=== PATIENT | male | born 1975 | race Caucasian/White ===

== ENCOUNTER 2016-04-30 09:13 | Inpatient (IN) | payer OTHER ==
[~2016-04-30] VITALS: Ht 165.1 cm; Wt 114.0 kg
[~2016-04-30 09:13] MED LIST: ADVI200C9 PO; CIPR500T4 PO; LORT5TAB PO; TYLE3 PO; Z.0.NO CURRENT MEDS
[2016-04-30] MEDS ORDERED: MORPHINE SULFATE 8 MG/ML INJ ONE ×2 (09:17→09:31)
[2016-04-30] MEDS ORDERED: ONDANSETRON HCL 4 MG/2 ML VIAL ONE (09:18)
[2016-04-30] MEDS ORDERED: DIPHTH/TETANUS/ACEL PERTUSSIS (BOOSTER) 0.5 ML VIAL/PFS IM ONE ×2 (09:18→10:00)
[2016-04-30] MEDS ORDERED: ceFAZolin 2 GM PREMIX 50 ML ONE (09:18)
[2016-04-30 09:23] VITALS: O2SAT 97
[2016-04-30 09:31] LABS: I-STAT POTASSIUM 4.3 MMOL/L (3.5-4.9); I-STAT SODIUM 142 MMOL/L (138-146)
[2016-04-30 09:33] LABS: EOSINOPHIL % 1.5 % (0.0-4.0); HEMATOCRIT 49.2 % (39.0-51.0); HEMO FLAGS DIFF FINAL; LYMPH % 33.9 % (9.0-44.0); MEAN CELL VOLUME 86.2 FL (80.0-100.0); MEAN CORPUSCULAR HEMOGLOBIN 29.7 PG (27.0-34.0); MEAN CORPUSCULAR HGB CONC 34.4 % (32.0-36.0); MONO % 3.8 % (0.0-8.0); NEUT % 59.8 % (16.0-70.0); PLATELET COUNT 380 TH/MM3 (150-450); RED BLOOD COUNT 5.71 MIL/MM3 (4.50-5.90); RED CELL DISTRIBUTION WIDTH 13.5 % (11.6-17.2); WHITE BLOOD COUNT 14.1 TH/MM3 (4.0-11.0)
[2016-04-30 09:34] LABS: AUTOMATED NEUTROPHIL # 8.4 TH/MM3 (1.8-7.7); BASOPHIL # 0.1 TH/MM3 (0-0.2); EOSINOPHIL # 0.2 TH/MM3 (0-0.4); LYMPHOCYTE # 4.8 TH/MM3 (1.0-4.8)
[2016-04-30] MEDS ORDERED: IOHEXOL 350 MG/ML 10 ML VIAL (for RAD DIAG) IV ONE (09:42)
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
[2016-04-30 09:44] LABS: APTT (PATIENT) 22.6 SEC (24.3-30.1); INTERNATIONAL NORMALIZED RATIO 0.9 RATIO; PROTHROMBIN TIME - PATIENT 10.4 SEC (9.8-11.6)
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
[2016-04-30] MEDS ORDERED: HYDROmorphone HCL PF 1 MG/ML VIAL ONE (09:46)
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
[2016-04-30] MEDS ORDERED: MORPHINE SULFATE 4 MG/ML INJ IV ONE (10:00)
[2016-04-30] MEDS ORDERED: ONDANSETRON HCL 4 MG/2 ML VIAL IV PUSH ONE ×2 (10:00→12:00)
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
[2016-04-30] MEDS ORDERED: metroNIDAZOLE 500 MG INJ 100 ML IV ONE (10:05)
[2016-04-30] MEDS ORDERED: ceFAZolin 2 GM PREMIX 50 ML IV ONE (10:15)
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
[2016-04-30 11:10] LABS: BLOOD GAS BASE EXCESS -4.8 mmol/L (-2-2); BLOOD GAS CARBOXYHEMOGLOBIN 1.1 % (0-4); BLOOD GAS HCO3 21 mmol/L (22-26); BLOOD GAS METHEMOGLOBIN 1.2 % (0-2); BLOOD GAS O2 HGB SATURATION 97 % (90-100); BLOOD GAS OXYGEN CONTENT 18.6 Vol % (12.0-20.0); BLOOD GAS PCO2 48 mmHg (38-42); BLOOD GAS PO2 216 mmHg (61-120); BLOOD GAS TOTAL HGB 13.3 G/DL (12.0-16.0); CRITICAL VALUE YES; FIO2 100 %; OXYGEN DEVICE VENTILATOR; STAT YES; TEMP CORR TO 98.6; VENT SETTINGS OR SETTINGS
[2016-04-30] MEDS ORDERED: SUGAMMADEX SODIUM 200 MG/2 ML VIAL IV PUSH ONE ×2 (11:25)
[2016-04-30] MEDS ORDERED: ONDANSETRON HCL 4 MG/2 ML VIAL IV PRN (11:30)
[2016-04-30] MEDS ORDERED: ENALAPRILAT 1.25 MG/ML VIAL IV PRN (11:30)
[2016-04-30] MEDS ORDERED: ACETAMINOPHEN/HYDROcodone 325 MG/5 MG TAB PO PRN (11:30)
[2016-04-30] MEDS ORDERED: MAGNESIUM HYDROXIDE SUSP 30 ML CUP PO PRN (11:30)
[2016-04-30] MEDS ORDERED: SODIUM CHLORIDE 0.9% FLUSH 5 ML FLUSH IVF PRN (11:30)
[2016-04-30] MEDS ORDERED: PROPOFOL 200 MG/20 ML AMP IV ONE (12:00)
[2016-04-30] MEDS ORDERED: LACTATED RINGER'S 1000 ML INJ 3,000 ML IV ONE (12:00)
[2016-04-30] MEDS ORDERED: NORMOSOL R INJ 1,000 ML IV ONE (12:00)
[2016-04-30] MEDS ORDERED: NEOSTIGMINE 3 MG/3 ML SYR IV ONE (12:00)
[2016-04-30] MEDS ORDERED: SODIUM CHLOR 0.9% 1000 ML INJ 1,000 ML IV ONE (12:00)
[2016-04-30] MEDS: SODIUM CHLOR 0.9% 1000 ML INJ 1,000 ML IV SCH ×2 (13:00→23:00)
[2016-04-30] MEDS: PANTOPRAZOLE SODIUM 40 MG VIAL IVP SCH (13:00)
[2016-04-30] MEDS ORDERED: DO NOT ADM ANY ANTICOAGULANT DRUGS XX PRN (13:28)
[2016-04-30] MEDS ORDERED: fentaNYL CITRATE 250 MCG/5 ML AMP ONE (13:48)
[2016-04-30] MEDS ORDERED: MIDAZOLAM HCL 2 MG/2 ML VIAL ONE (13:48)
[2016-04-30] MEDS ORDERED: MORPHINE SULFATE 4 MG/ML INJ ONE (13:49)
[2016-04-30] MEDS: HYDROmorphone HCL PF 1 MG/ML VIAL IVP PRN ×2 (14:10→19:05)
[2016-04-30] MEDS ORDERED: *morphine SULFATE 8 MG/ML PERIprocedure ONLY ONE ×2 (15:07→15:49)
[2016-04-30 17:57] VITALS: BP 131/60; PULSE 121; RESP 20; TEMP 97.9; O2SAT 93
[2016-04-30] MEDS: ACETAMINOPHEN/HYDROcodone 325 MG/5 MG TAB PO PRN ×2 (18:10→23:09)
[2016-04-30 20:00] VITALS: BP 119/59; PULSE 114; RESP 20; TEMP 98.7; O2SAT 92
[2016-04-30] MEDS: DOCUSATE SODIUM 100 MG CAP PO SCH (23:07)
[2016-05-01] VITALS (7 sets, daily range): BP systolic 104–131; BP diastolic 62–70; PULSE 81–103; RESP 18–20; TEMP 97.4–99.8; O2SAT 90–98
[2016-05-01] MEDS: BACITRACIN TOP OINT 15 GM TUBE TOP SCH ×2 (01:04→09:00)
[2016-05-01] MEDS: HYDROmorphone HCL PF 1 MG/ML VIAL IVP PRN ×5 (04:21→21:25)
[2016-05-01] MEDS: DOCUSATE SODIUM 100 MG CAP PO SCH ×2 (09:00→21:13)
[2016-05-01 09:28] LABS: AUTOMATED NEUTROPHIL # 9.2 TH/MM3 (1.8-7.7); BASOPHIL # 0.1 TH/MM3 (0-0.2); BASOPHIL % 0.7 % (0.0-2.0); EOSINOPHIL # 0.1 TH/MM3 (0-0.4); EOSINOPHIL % 0.5 % (0.0-4.0); HEMATOCRIT 37.5 % (39.0-51.0); HEMO FLAGS DIFF FINAL; LYMPHOCYTE # 2.1 TH/MM3 (1.0-4.8); MEAN CELL VOLUME 86.4 FL (80.0-100.0); MEAN CORPUSCULAR HEMOGLOBIN 29.3 PG (27.0-34.0); MEAN CORPUSCULAR HGB CONC 33.9 % (32.0-36.0); MONO % 7.9 % (0.0-8.0); NEUT % 73.9 % (16.0-70.0); PLATELET COUNT 163 TH/MM3 (150-450); RED BLOOD COUNT 4.33 MIL/MM3 (4.50-5.90); RED CELL DISTRIBUTION WIDTH 13.9 % (11.6-17.2); WHITE BLOOD COUNT 12.5 TH/MM3 (4.0-11.0)
[2016-05-01 09:32] LABS: ALKALINE PHOSPHATASE 52 U/L (45-117); ALT (GPT) 92 U/L (12-78); ANION GAP 10 MEQ/L (5-15); AST (GOT) 52 U/L (15-37); BICARBONATE 23.8 MEQ/L (21.0-32.0); CHLORIDE 106 MEQ/L (98-107); GLOMERULAR FILTRATION RATE 110 ML/MIN (>89); POTASSIUM 4.1 MEQ/L (3.5-5.1); SODIUM (NA) 140 MEQ/L (136-145); TOTAL BILIRUBIN ADULT 0.5 MG/DL (0.2-1.0)
[2016-05-01 09:44] LABS: BLOOD UREA NITROGEN 12 MG/DL (7-18)
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
[2016-05-01] MEDS: PANTOPRAZOLE SODIUM 40 MG VIAL IVP SCH (13:00)
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
[2016-05-01] MEDS: ACETAMINOPHEN/HYDROcodone 325 MG/5 MG TAB PO PRN ×2 (13:50→18:07)
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
--- NOTE | 2016-05-01 15:53 | RADRPT ---
EXAM DATE/TIME: 05/01/2016 14:43 [facility] COMPARISON: No previous studies available for comparison. INDICATIONS : Right knee pain posteriorly MEDICAL HISTORY : None. SURGICAL HISTORY : None. ENCOUNTER: Initial ACUITY: 3 days PAIN SCORE: 10/10 LOCATION: Right posterior knee FINDINGS: Four view examination of the right knee demonstrates no evidence of fracture or dislocation. Bony mi neralization is normal. The articular surfaces are intact. The suprapatellar soft tissues have a no rmal configuration. CONCLUSION: Negative for fracture or dislocation. Followup in 7-10 days is suggested if symptoms persist. Faizan Gordillo MD FACR on May 01, 2016 at 15:51 Board Certified Radiologist. This report was verified electronically.
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
[2016-05-01] MEDS: SILVER SULFADIAZINE 1% CR 50 GM JAR TOPICAL SCH (21:00)
[2016-05-02] MEDS: ACETAMINOPHEN/HYDROcodone 325 MG/5 MG TAB PO PRN ×4 (00:15→15:37)
[2016-05-02 01:00] VITALS: BP 121/72; PULSE 87; RESP 18; TEMP 98; O2SAT 90
[2016-05-02] MEDS: HYDROmorphone HCL PF 1 MG/ML VIAL IVP PRN (03:38)
[2016-05-02 04:00] VITALS: BP 134/85; PULSE 98; RESP 18; TEMP 98; O2SAT 95
[2016-05-02] MEDS: BACITRACIN TOP OINT 15 GM TUBE TOP SCH ×2 (06:52→10:34)
[2016-05-02] MEDS ORDERED: MILKSUS PO (07:45)
[2016-05-02] MEDS ORDERED: DOCU1CAP39 PO (07:45)
[2016-05-02 08:03] VITALS: BP 110/65; PULSE 93; RESP 20; TEMP 96.9; O2SAT 95
[2016-05-02 08:50] VITALS: O2SAT 92
[2016-05-02] MEDS ORDERED: LACTULOSE SYRUP 20 GM/30 ML CUP PO ONE (09:00)
[2016-05-02] MEDS: SILVER SULFADIAZINE 1% CR 50 GM JAR TOPICAL SCH (10:34)
[2016-05-02] MEDS: DOCUSATE SODIUM 100 MG CAP PO SCH (10:34)
[2016-05-02] MEDS: PANTOPRAZOLE SODIUM 40 MG VIAL IVP SCH (11:34)
[2016-05-02 12:00] VITALS: BP 129/79; PULSE 94; RESP 20; TEMP 98.3; O2SAT 95
[2016-05-02] MEDS ORDERED: PERC5TAB12 PO (12:05)
[2016-05-02] MEDS ORDERED: WALKER WHEELS/F1 MIS (12:10)
[2016-05-02] MEDS ORDERED: CLIN1CAP6 PO (12:12)
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
--- NOTE | 2016-05-05 07:45 | MP ---
cc: LAWRENCE RHODES III, M.D. KARLO [id number] DATE OF SURGERY 04/30/2014 PREOPERATIVE DIAGNOSIS Open fracture left index finger with extensor tendon repair. PROCEDURE 1. Left index finger extensor tendon repair 2. Debridement of open fracture left second proximal phalanx and metacarpal 3. Left index finger MCP capsule repair. SURGEON Lawrence Rhodes III, MD PROCEDURE The patient was already in the operating room under anesthesia. The left upper extremity prepped and draped in traditional sterile surgical fashion. The open wound on the index finger and hand was explored. It was found to be completely transected. The extensor tendon of the index finger at the base of the proximal phalanx, there was also an abrasive type of injury that exposed the base of the proximal phalanx, as well as the head of the metacarpal and left a defect in the joint capsule of the MCP joint. A liters worth of saline was used to thoroughly irrigate out the wound. A curette was then used to debride the exposed bony surfaces that were abraded. There was only a small area of denuded bone in the index metacarpal head that did not appeared to be a significant location in the MP joint. There were no loose fragments within the joint. The capsule was then repaired using interrupted and running 3-0 Ethibond sutures. The extensor tendon was then repaired using a 3-0 Prolene suture first in a primary fashion first in a whipstitch and then in a crossing backstitch. It was then reinforced with a far and wide 4-0 Mersilene suture. Thorough irrigation was performed. Full passive range of motion was unrestricted. Tenodesis was performed and was found to be normal. There were no other injuries identified. Thorough irrigation was performed again. The skin edges were trimmed of devitalized tissue and the skin edges reapproximated using interrupted 4-0 chromic sutures. The hand and arm were thoroughly cleansed and dried. Betadine Adaptic dressings were applied on top of the wound followed by a bulky volar immobilizing radial gutter splint in the usual fashion. No tourniquet was used, but there was an Rohit wrap used around the forearm as the patient still had his lines in from the trauma bay and his antecubital fossa which were necessary at the time. There was no evidence of any bleeding postoperatively. Hemostasis was present. There is no hematoma formation. Capillary refill was less than two seconds to the fingertips. The patient was awakened from anesthesia and transported to the Post Anesthesia Care Unit awake and in stable condition at the end of the case. Sponge, needle, and instrument counts were correct at the end of case as reported by nurses in the room. MD GUTIERREZ Hernandez III/LIBORIO /9:23 AM /7:27 AM
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
[2016-08-02] MEDS ORDERED: OXYC-392 PO (08:51)
[2016-08-02] MEDS ORDERED: CLINPOW (08:51)
[2016-08-02] MEDS ORDERED: NAPR500T PO (08:51)
== END 2016-05-02 16:16 | disposition home or self-care (01) | DRG 506 ==
LOC: NEPI 09:13 → MERGE 09:28 → NEDA 09:28 → EDBD 09:28 → N05B 17:24
PROVIDERS: ADMIT Surgery; ATTEND Surgery
PROC: 0RQV0ZZ Repair Left Metacarpophalangeal Joint, Open Approach (ICD-10-PCS; principal; 2016-05-01)
PROC: 0JDK0ZZ Extraction of Left Hand Subcutaneous Tissue and Fascia, Open Approach (ICD-10-PCS; 2016-05-01)
PROC: 0LQ80ZZ Repair Left Hand Tendon, Open Approach (ICD-10-PCS; 2016-05-01)
PROC: 0DBW4ZX Excision of Peritoneum, Percutaneous Endoscopic Approach, Diagnostic (ICD-10-PCS; 2016-05-01)
PROC: 0HDDXZZ Extraction of Right Lower Arm Skin, External Approach (ICD-10-PCS; 2016-05-01)
DX: S62.641B Nondisplaced fracture of proximal phalanx of left index finger, initial encounter for open fracture (principal); K66.8 Other specified disorders of peritoneum; S09.90XA Unspecified injury of head, initial encounter; S22.43XA Multiple fractures of ribs, bilateral, initial encounter for closed fracture; Z68.41 Body mass index [BMI] 40.0-44.9, adult; S62.391B Other fracture of second metacarpal bone, left hand, initial encounter for open fracture; S66.321A Laceration of extensor muscle, fascia and tendon of left index finger at wrist and hand level, initial encounter; S51.811A Laceration without foreign body of right forearm, initial encounter; M25.511 Pain in right shoulder; M25.561 Pain in right knee; E66.9 Obesity, unspecified; V44.5XXA Car driver injured in collision with heavy transport vehicle or bus in traffic accident, initial encounter; Y92.413 State road as the place of occurrence of the external cause
CPT/HCPCS: 70450; 71010; 71260; 72125; 72170; 73030; 73090; 73120; 73564; 74177; 80053; 80320; 82435; 82565; 82805; 82947; 84132; 84295; 84520; 85025; 85610; 85730; 86850; 86900; 86901; 86920; 88304; 88305; 90471; 90715; 94150; 94667; 94668; 96374; 96375; 99291; C9113; G0390; J0690; J1170; J2250; J2270; J2405; J2710; J3010; J7030; J7120; Q9967